=== PATIENT | female | born 1945 | race Caucasian/White ===

== ENCOUNTER 2020-01-22 19:08 | Emergency (ER) | payer OTHER ==
[~2020-01-22] VITALS: Ht 152.4 cm; Wt 78.0 kg
[2020-01-22 19:31] VITALS: BP 164/71
--- NOTE | 2020-01-22 20:00 | NUR ---
PT AMBULATED TO BED 3.
--- NOTE | 2020-01-22 20:05 | NUR ---
PT 74 Y/O FEMALE BIB SELF FOR C/O R KNEE PAIN S/P FALL IN AM. PT DENIES HITTING HEAD OR LOC. PT AAO X4. SWELLING NOTED AROUND R PATELLA. NO SKIN DISCOLORATION NOTED AROUND R PATELLA. PT HAS 8/10 C/O PAIN. CMS INTACT. PEDAL PULSES STRONG AND EQUAL BIALT. PT STATES SHE IS ABLE TO AMBULATE BUT IT IS PAINFUL. RESPIRATIONS ARE EVEN AND UNLABORED. SKIN IS WARM AND DRY TO TOUCH. BED LOCKED AND IN LOWEST POSITION. MEDHX:DM TYPE II, HTN ALLERGIES: NONE
[2020-01-22] MEDS ORDERED: IBUPROFEN 600 MG TAB PO ONE (20:30)
[2020-01-22] MEDS ORDERED: ACETAMINOPHEN 325 MG TAB PO ONE (20:30)
--- NOTE | 2020-01-22 20:43 | NUR ---
XRAY AT BEDSIDE.
--- NOTE | 2020-01-22 21:20 | NUR ---
JOHNNY WRAP PLACED ON R KNEE BY ARACELI ARRINGTON. CMS INTACT. PT STATES PAIN HAS REDUCED FROM 8/10 R KNEE PAIN TO 6/10. PT DENIES NUMBNESS OR TINGLING. EDUCATION PROVIDED ON [place].
[2020-01-22 21:38] VITALS: BP 155/78
== END 2020-01-22 21:38 | disposition home or self-care (01) ==
LOC: MED 19:08
DX: S83.91XA Sprain of unspecified site of right knee, initial encounter (principal); I10 Essential (primary) hypertension; W19.XXXA Unspecified fall, initial encounter; Y93.89 Activity, other specified; Y92.89 Other specified places as the place of occurrence of the external cause; Y99.8 Other external cause status
CPT/HCPCS: 73562; 99283